=== PATIENT | male | born 1985 | race Two or more races ===

== ENCOUNTER 2020-09-23 02:46 | Emergency (ER) | payer MEDICAID ==
[~2020-09-23] VITALS: Ht 190.5 cm; Wt 77.1 kg
[2020-09-23 02:50] VITALS: BP 135/82
[2020-09-23] MEDS ORDERED: IBUP-1957 PO (04:37)
--- NOTE | 2020-09-23 04:49 | NUR ---
Patient is ambulatory with a steady gait.
--- NOTE | 2020-09-23 04:49 | NUR ---
Patient discharged to home in stable condition. Written and verbal after care instructions given. Patient verbalizes understanding of instruction.
== END 2020-09-23 04:51 | disposition home or self-care (01) ==
LOC: ER 02:56
DX: M54.2 Cervicalgia (principal); M54.5 Low back pain; M79.18 Myalgia, other site; V49.49XA Driver injured in collision with other motor vehicles in traffic accident, initial encounter; Y93.89 Activity, other specified; Y92.413 State road as the place of occurrence of the external cause; Y99.8 Other external cause status